=== PATIENT | female | born 1980 | race Caucasian/White ===

== ENCOUNTER 2021-04-24 20:48 | Emergency (ER) | payer OTHER ==
[2021-04-24 21:00] VITALS: BP 149/97; PULSE 78; TEMP 97.6; BMI 26.1
[2021-04-24] MEDS ORDERED: CEPHALEXIN MONOHYDRATE 500 MG CAPSULE (UD) ONE (22:37)
[2021-04-24] MEDS ORDERED: CEPHALEXIN MONOHYDRATE 500 MG CAPSULE (UD) PO ONE (23:04)
== END 2021-04-24 22:50 | disposition home or self-care (01) ==
LOC: JER 20:48 → JERFT 20:48
DX: T81.89XA Other complications of procedures, not elsewhere classified, initial encounter (principal); S61.002A Unspecified open wound of left thumb without damage to nail, initial encounter; Y99.8 Other external cause status; Z48.01 Encounter for change or removal of surgical wound dressing
CPT/HCPCS: 99283-25

== ENCOUNTER 2022-02-13 17:07 | Emergency (ER) | payer OTHER ==
[2022-02-13 17:21] VITALS: BMI 28.6
[2022-02-13] MEDS ORDERED: SODIUM CHLORIDE 1,000 ML IV STA (18:06)
[2022-02-13] MEDS ORDERED: METOCLOPRAMIDE HCL INJECTION 10 MG/2 ML VIAL IVPUSH ONE (19:51)
[2022-02-13] MEDS ORDERED: KETOROLAC TROMETHAMINE 30 MG/1 ML VIAL IVPUSH ONE (19:52)
[2022-02-13 19:53] LABS: HEMATOCRIT 36.3 % (32.4-45.2); HEMOGLOBIN 11.4 GM/dL (10.7-15.3); LYMPH % 43.9 % (8-40); MCH 23.6 pg (25.7-33.7); MCHC 31.4 g/dl (32.0-36.0); MEAN CELL VOLUME 75.2 fl (80-96); MONO % 9.5 % (3.8-10.2); NEUT % 43.6 % (42.8-82.8); PLATELET COUNT 368 10^3/uL (134-434); RBC 4.83 M/mm3 (3.60-5.2); RDW 16.6 % (11.6-15.6); WHITE BLOOD COUNT 6.5 K/mm3 (4.0-10.0)
[2022-02-13 20:08] LABS: ACTIVATED PTT 30.4 SECONDS (25.2-36.5); INR 0.89 (0.83-1.09); PROTHROMBIN TIME (PATIENT) 10.2 SEC (9.7-13.0)
[2022-02-13 20:11] LABS: CALCIUM 8.6 mg/dL (8.5-10.1)
[2022-02-13 20:12] LABS: ALBUMIN 3.8 g/dl (3.4-5.0); BLOOD UREA NITROGEN 16.7 mg/dL (7-18); MAGNESIUM 2.3 mg/dL (1.8-2.4)
[2022-02-13 20:15] LABS: CREATININE 0.9 mg/dL (0.55-1.3)
[2022-02-13 20:16] LABS: BILIRUBIN,TOTAL 0.2 mg/dL (0.2-1); TOT PROT 7.4 g/dl (6.4-8.2)
[2022-02-13] MEDS ORDERED: KETOROLAC TROMETHAMINE 30 MG/1 ML VIAL ONE (20:27)
[2022-02-13] MEDS ORDERED: METOCLOPRAMIDE HCL INJECTION 10 MG/2 ML VIAL ONE (20:27)
[2022-02-13] MEDS ORDERED: ACETAMINOPHEN 500 MG TABLET (FP) PO ONE (20:27)
[2022-02-13] MEDS ORDERED: NAPROXEN 500 MG TABLET PO ONE (20:27)
[2022-02-13] MEDS ORDERED: ACETAMINOPHEN 325 MG TABLET (FP) ONE (20:33)
[2022-02-13] MEDS ORDERED: NAPROXEN 500 MG TABLET ONE (20:33)
[2022-02-13] MEDS ORDERED: DEXAMETHASONE SOD PHOSPHATE 10 MG/1 ML VIAL IVPUSH ONE (22:58)
[2022-02-13] MEDS ORDERED: hydrALAZINE HCL 20 MG/ML VIAL IVPUSH ONE (23:14)
[2022-02-13] MEDS ORDERED: hydrALAZINE HCL 20 MG/ML VIAL ONE (23:35)
[2022-02-13] MEDS ORDERED: DEXAMETHASONE SOD PHOSPHATE 10 MG/1 ML VIAL ONE (23:35)
[2022-02-14 01:34] VITALS: BP 166/94; PULSE 70; TEMP 97.5
== END 2022-02-14 01:49 | disposition home or self-care (01) ==
LOC: JER 17:07
PROC: 3E033GC Introduction of Other Therapeutic Substance into Peripheral Vein, Percutaneous Approach (ICD-10-PCS; principal; 2022-02-13)
DX: R51.9 Headache, unspecified (principal); I10 Essential (primary) hypertension
CPT/HCPCS: 36415; 70450-TC; 80053; 83735; 84484; 85025; 85379; 85610; 85730; 93005; 93010; 99285-25; J1100

== ENCOUNTER 2022-02-14 15:34 | Inpatient (IN) | payer OTHER ==
[2022-02-14] MEDS ORDERED: METOCLOPRAMIDE HCL INJECTION 10 MG/2 ML VIAL IVPB ONE (16:36)
[2022-02-14] MEDS ORDERED: KETOROLAC TROMETHAMINE 15 MG/ML VIAL IVPUSH ONE (16:36)
[2022-02-14] MEDS ORDERED: SODIUM CHLORIDE 0.9% 500 ML INFUS.BAG IV ONE (16:36)
[2022-02-14] MEDS ORDERED: ACETAMINOPHEN 1000 MG/100 ML BAG IVPB ONE (16:36)
[2022-02-14] MEDS ORDERED: KETOROLAC TROMETHAMINE 15 MG/ML VIAL ONE (16:46)
[2022-02-14] MEDS ORDERED: METOCLOPRAMIDE HCL INJECTION 10 MG/2 ML VIAL ONE (16:46)
[2022-02-14] MEDS ORDERED: ACETAMINOPHEN INJECTION 100 ML IVPB ONE (16:47)
[2022-02-14 17:05] LABS: BASO % 0.6 % (0-2.0); EOS % 0.1 % (0-4.5); HEMATOCRIT 33.6 % (32.4-45.2); HEMOGLOBIN 10.7 GM/dL (10.7-15.3); LYMPH % 26.5 % (8-40); MCHC 31.9 g/dl (32.0-36.0); MEAN CELL VOLUME 75.2 fl (80-96); MEAN PLT VOLUME 7.4 fl (7.5-11.1); MONO % 8.8 % (3.8-10.2); PLATELET COUNT 346 10^3/uL (134-434); RBC 4.47 M/mm3 (3.60-5.2); RDW 16.6 % (11.6-15.6); WHITE BLOOD COUNT 12.5 K/mm3 (4.0-10.0)
[2022-02-14 17:31] LABS: CALCIUM 9.1 mg/dL (8.5-10.1)
[2022-02-14 17:32] LABS: ALBUMIN 3.6 g/dl (3.4-5.0); BLOOD UREA NITROGEN 16.9 mg/dL (7-18)
[2022-02-14 17:35] LABS: CREATININE 0.8 mg/dL (0.55-1.3)
[2022-02-14 17:37] LABS: BILIRUBIN,TOTAL 0.4 mg/dL (0.2-1); TOT PROT 6.8 g/dl (6.4-8.2)
[2022-02-14 19:57] LABS: PH,URINE 5.5 (5.0-8.0); URINE APPEARANCE CLEAR; URINE BILIRUBIN NEGATIVE (NEGATIVE); URINE COLOR YELLOW; URINE GLUCOSE (UA) NEGATIVE (NEGATIVE); URINE KETONE NEGATIVE (NEGATIVE); URINE LEUK ESTERASE NEGATIVE (NEGATIVE); URINE NITRITE NEGATIVE (NEGATIVE); URINE PROTEIN NEGATIVE (NEGATIVE); URINE UROBILINOGEN 0.2 mg/dL (0.2-1.0)
[2022-02-14] MEDS ORDERED: hydrALAZINE HCL 20 MG/ML VIAL IVPUSH ONE (22:59)
[2022-02-14] MEDS ORDERED: hydrALAZINE HCL 20 MG/ML VIAL ONE (23:00)
[2022-02-15] MEDS ORDERED: ACETAMINOPHEN 1000 MG/100 ML BAG IVPB PRN ×2 (00:07→00:38)
[2022-02-15] MEDS ORDERED: POTASSIUM CHLORIDE ORAL LIQUID 20 MEQ/15 ML PO ONE (00:17)
[2022-02-15] MEDS ORDERED: KCL 10 MEQ IVPB 10 MEQ/100 ML INFUS.BAG IVPB SCH (00:30)
[2022-02-15] MEDS ORDERED: KCL 10 MEQ IVPB 10 MEQ/100 ML INFUS.BAG IVPB ONE (00:33)
[2022-02-15] MEDS ORDERED: POTASSIUM CHLORIDE ORAL LIQUID 20 MEQ/15 ML ONE (00:33)
[2022-02-15 04:31] VITALS: BMI 28.1
[2022-02-15 07:02] LABS: BASO % 0.6 % (0-2.0); EOS % 1.6 % (0-4.5); HEMATOCRIT 32.9 % (32.4-45.2); HEMOGLOBIN 10.7 GM/dL (10.7-15.3); LYMPH % 52.3 % (8-40); MCH 24.3 pg (25.7-33.7); MCHC 32.6 g/dl (32.0-36.0); MEAN CELL VOLUME 74.5 fl (80-96); MONO % 7.3 % (3.8-10.2); NEUT % 38.2 % (42.8-82.8); PLATELET COUNT 331 10^3/uL (134-434); RBC 4.42 M/mm3 (3.60-5.2); RDW 16.3 % (11.6-15.6)
[2022-02-15 07:20] LABS: CALCIUM 8.5 mg/dL (8.5-10.1)
[2022-02-15 07:21] LABS: ALBUMIN 3.5 g/dl (3.4-5.0); BLOOD UREA NITROGEN 9.9 mg/dL (7-18)
[2022-02-15 07:24] LABS: CREATININE 0.5 mg/dL (0.55-1.3); PHOSPHOROUS 3.6 mg/dL (2.5-4.9)
[2022-02-15 07:25] LABS: BILIRUBIN,TOTAL 0.4 mg/dL (0.2-1); TOT PROT 6.6 g/dl (6.4-8.2)
[2022-02-15] MEDS: ENOXAPARIN NA (PORCINE) 40 MG/0.4 ML DISP.SYRIN SQ SCH (09:14)
[2022-02-15] MEDS: LOSARTAN POTASSIUM 50 MG TABLET PO SCH (09:14)
[2022-02-15] MEDS: HYDROCHLOROTHIAZIDE 12.5 MG CAPSULE (FP) PO SCH (09:15)
[2022-02-15] MEDS: DULoxetine HCL 30 MG CAPSULE.DR PO SCH (09:15)
[2022-02-15] MEDS ORDERED: amLODIPine BESYLATE 2.5 MG TABLET (FP) PO SCH (10:00)
[2022-02-15] MEDS: clonazePAM 0.5 MG TABLET PO PRN (18:44)
[2022-02-16] MEDS: clonazePAM 0.5 MG TABLET PO PRN ×2 (08:33→20:58)
[2022-02-16] MEDS: LOSARTAN POTASSIUM 50 MG TABLET PO SCH ×2 (08:43→09:55)
[2022-02-16] MEDS: ENOXAPARIN NA (PORCINE) 40 MG/0.4 ML DISP.SYRIN SQ SCH (09:55)
[2022-02-16] MEDS: DULoxetine HCL 30 MG CAPSULE.DR PO SCH (09:55)
[2022-02-16] MEDS: HYDROCHLOROTHIAZIDE 12.5 MG CAPSULE (FP) PO SCH (09:55)
[2022-02-16] MEDS ORDERED: amLODIPine BESYLATE 5 MG TABLET (FP) PO SCH (10:00)
[2022-02-16] MEDS ORDERED: IRON SUCROSE INJECTION 200 MG in SODIUM CHLORIDE 90 ML IVPB ONE (14:23)
[2022-02-16] MEDS ORDERED: amLODIPine BESYLATE 5 MG TABLET (FP) PO ONE (17:27)
[2022-02-17 07:47] LABS: HEMOGLOBIN 11.7 GM/dL (10.7-15.3); MCH 24.3 pg (25.7-33.7); MCHC 32.5 g/dl (32.0-36.0); MEAN CELL VOLUME 74.7 fl (80-96); MEAN PLT VOLUME 7.9 fl (7.5-11.1); PLATELET COUNT 341 10^3/uL (134-434); RBC 4.82 M/mm3 (3.60-5.2); RDW 16.4 % (11.6-15.6); WHITE BLOOD COUNT 6.2 K/mm3 (4.0-10.0)
[2022-02-17 08:05] LABS: CALCIUM 9.1 mg/dL (8.5-10.1)
[2022-02-17 08:06] LABS: BLOOD UREA NITROGEN 14.2 mg/dL (7-18); MAGNESIUM 2.2 mg/dL (1.8-2.4)
[2022-02-17 08:09] LABS: CREATININE 0.6 mg/dL (0.55-1.3)
[2022-02-17] MEDS ORDERED: amLODIPine BESYLATE 10 MG TABLET (FP) PO SCH (10:00)
[2022-02-17] MEDS ORDERED: NICOTINE 21 MG/24 HOURS TOPICAL PATCH TD SCH (10:00)
[2022-02-17] MEDS: DULoxetine HCL 30 MG CAPSULE.DR PO SCH (10:43)
[2022-02-17] MEDS: LOSARTAN POTASSIUM 50 MG TABLET PO SCH (10:43)
[2022-02-17] MEDS: HYDROCHLOROTHIAZIDE 12.5 MG CAPSULE (FP) PO SCH (10:43)
[2022-02-17] MEDS: ENOXAPARIN NA (PORCINE) 40 MG/0.4 ML DISP.SYRIN SQ SCH (10:43)
[2022-02-17] MEDS ORDERED: NICOTINE POLACRILEX 2 MG GUM BUC PRN (11:13)
[2022-02-17 11:19] VITALS: BP 138/98; PULSE 88; TEMP 98.7
[2022-02-17] MEDS ORDERED: ACETAMINOPHEN 325 MG TABLET (FP) PO PRN (12:55)
[2022-02-17] MEDS: clonazePAM 0.5 MG TABLET PO PRN (13:01)
== END 2022-02-17 14:07 | disposition home or self-care (01) | DRG 305 ==
LOC: JER 15:34 → JERBED 20:59 → J4W 02-15 03:27
PROVIDERS: ADMIT Internal Medicine; ATTEND Internal Medicine
DX: I16.0 Hypertensive urgency (principal); E87.6 Hypokalemia; F41.9 Anxiety disorder, unspecified; E78.5 Hyperlipidemia, unspecified
CPT/HCPCS: 36415; 70450-TC; 70496-TC; 70498-TC; 70551-TC; 71045-TC-FY; 76775-TC; 80048; 80053; 80061; 81003; 82728; 83540; 83550; 83735; 84100; 84443; 84703; 85025; 85027; 87086; 93005; 93010; 93306-TC; 93970-TC; 99285-25; C9803-CS; J1756; U0003; U0005